=== PATIENT | male | born 1980 | race Two or more races ===

== ENCOUNTER 2017-04-01 01:32 | Emergency (ER) | payer SELFPAY ==
[~2017-04-01] VITALS: Ht 180.3 cm; Wt 75.1 kg
[2017-04-01] MEDS ORDERED: KETOROLAC 30 MG/1 ML IM ONE (02:30)
[2017-04-01] MEDS ORDERED: KETOROLAC 30 MG/1 ML ONE (02:42)
[2017-04-01] MEDS ORDERED: IBUPROFEN 200 MG TABLET ONE (02:48)
[2017-04-01] MEDS ORDERED: IBUPROFEN 200 MG TABLET PO ONE (03:00)
[2017-04-01 03:48] VITALS: BP 128/74
== END 2017-04-01 04:03 | disposition home or self-care (01) ==
LOC: ED 03:20
DX: R07.89 Other chest pain (principal); G44.219 Episodic tension-type headache, not intractable
CPT/HCPCS: 71020; 93005; 99284